=== PATIENT | male | born 1995 ===

== ENCOUNTER 2021-04-05 15:50 | Emergency (ER) | payer OTHER ==
--- NOTE | 2021-04-05 16:28 | EDM.PDOC ---
ED HPI GENERAL MEDICAL PROBLEM - General Chief Complaint: Abdominal Pain Stated Complaint: L SIDE ABD PAIN Time Seen by Provider: 04/05/21 16:27 Source of Information: Reports: Patient, RN Notes Reviewed - History of Present Illness INITIAL COMMENTS - FREE TEXT/NARRATIVE: 25 yr old male comes in with L flank and LLQ pain. He had onset of mild discomfort yesterday, became very severe this afternoon about 2 hrs ago. No voiding sx. No nausea, vomiting, fever or chills. Has chronic diarrhea associated with metformin usage. Left Lower Abdomen Pain Score (Numeric/FACES): 10 - Related Data Allergies Allergy/AdvReac Type Severity Reaction Status Date / Time No Known Allergies Allergy Verified 04/05/21 16:05 Home Meds: Home Meds Acetaminophen/oxyCODONE [Percocet 325-5 MG] 1 each PO Q6HR PRN #20 tab 04/05/21 [Rx] Dulaglutide [Trulicity] 1 injection SQ WEEKLY 04/05/21 [History] Losartan [Cozaar] 25 mg PO DAILY 04/05/21 [History] Tamsulosin HCl [Flomax] 0.4 mg PO DAILY #10 cap.er.24h 04/05/21 [Rx] metFORMIN HCl [Metformin HCl] 1,000 mg PO BID 04/05/21 [History] Past Medical History HEENT History: Reports: Impaired Vision Cardiovascular History: Reports: High Cholesterol Psychiatric History: Reports: Anxiety Endocrine/Metabolic History: Reports: Diabetes, Type II, Obesity/BMI 30+ Social & Family History - Tobacco Use Tobacco Use Status *Q: Never Tobacco User - Caffeine Use Caffeine Use: Reports: Soda - Recreational Drug Use Recreational Drug Use: No ED ROS GENERAL - Review of Systems Review Of Systems: See Below Constitutional: Denies: Fever, Chills, Diaphoresis HEENT: Reports: No Symptoms Respiratory: Denies: Shortness of Breath Cardiovascular: Denies: Chest Pain GI/Abdominal: Reports: Abdominal Pain, Diarrhea. Denies: Nausea, Vomiting : Reports: No Symptoms Musculoskeletal: Reports: Back Pain (, gone) Skin: Reports: No Symptoms Neurological: Reports: No Symptoms ED EXAM, GI/ABD - Physical Exam Exam: See Below General Appearance: Alert, Mild Distress Throat/Mouth: Normal Inspection Head: Atraumatic Neck: Supple Respiratory/Chest: No Respiratory Distress, Lungs Clear, Normal Breath Sounds Cardiovascular: Regular Rate, Rhythm GI/Abdominal Exam: Soft, Tender (very mild tenderness l lower abd, R abd nontender). No: Guarding, Rebound Back Exam: CVA Tenderness (L) (mild) Extremities: Normal Inspection Neurological: Alert, Oriented, No Motor/Sensory Deficits Skin Exam: Warm, Dry, Normal Color Course - Vital Signs Last Recorded V/S: Last Vital Signs Temp 96.2 F L 04/05/21 16:02 Pulse 80 04/05/21 16:02 Resp 16 04/05/21 16:02 BP 161/103 H 04/05/21 16:02 Pulse Ox 97 04/05/21 16:02 - Orders/Labs/Meds Orders: Active Orders 24 hr Category Date Time Status Peripheral IV Insertion Adult [OM.PC] Stat Oth 04/05/21 16:41 Ordered Labs: Laboratory Tests 04/05/21 04/05/21 04/05/21 Range/Units 16:15 16:15 16:48 WBC 9.85 H (4.23-9.07) K/mm3 RBC 5.44 (4.63-6.08) M/mm3 Hgb 16.3 (13.7-17.5) gm/dl Hct 46.1 (40.1-51.0) % MCV 84.7 (79.0-92.2) fl MCH 30.0 (25.7-32.2) pg MCHC 35.4 (32.2-35.5) g/dl RDW Std Deviation 37.9 (35.1-43.9) fL Plt Count 318 (163-337) K/mm3 MPV 9.7 (9.4-12.3) fl Neut % (Auto) 55.1 (34.0-67.9) % Lymph % (Auto) 35.6 (21.8-53.1) % [place] % (Auto) 6.3 (5.3-12.2) % Eos % (Auto) 2.7 (0.8-7.0) Baso % (Auto) 0.3 (0.1-1.2) % Neut # (Auto) 5.42 H (1.78-5.38) K/mm3 Lymph # (Auto) 3.51 (1.32-3.57) K/mm3 [place] # (Auto) 0.62 (0.30-0.82) K/mm3 Eos # (Auto) 0.27 (0.04-0.54) K/mm3 Baso # (Auto) 0.03 (0.01-0.08) K/mm3 Sodium 141 (136-145) mEq/L Potassium 4.1 (3.5-5.1) mEq/L Chloride 104 (98-107) mEq/L Carbon Dioxide 28 (21-32) mEq/L Anion Gap 13.1 (5-15) BUN 12 (7-18) mg/dL Creatinine 1.0 (0.7-1.3) mg/dL Est Cr Clr Drug Dosing 110.96 mL/min Estimated GFR (MDRD) > 60 (>60) mL/min BUN/Creatinine Ratio 12.0 L (14-18) Glucose 147 H (70-99) mg/dL Calcium 9.1 (8.5-10.1) mg/dL Total Bilirubin 0.3 (0.2-1.0) mg/dL AST 50 H (15-37) U/L ALT 155 H (16-63) U/L Alkaline Phosphatase 54 (46-116) U/L C-Reactive Protein <0.2 (<1.0) mg/dL Total Protein 8.0 (6.4-8.2) g/dl Albumin 4.2 (3.4-5.0) g/dl Globulin 3.8 gm/dL Albumin/Globulin Ratio 1.1 (1-2) Urine Color Yellow (Yellow) Urine Appearance Cloudy H (Clear) Urine pH 6.0 (5.0-8.0) Ur Specific [place] > or = 1.030 (1.005-1.030) Urine Protein 1+ H (Negative) Urine Glucose (UA) Negative (Negative) Urine Ketones Trace H (Negative) Urine Occult Blood 3+ H (Negative) Urine Nitrite Negative (Negative) Urine Bilirubin 1+ H (Negative) Urine Urobilinogen 0.2 (0.2-1.0) Ur Leukocyte Esterase Negative (Negative) Urine RBC >100 H (0-5) /hpf Urine WBC 0-5 (0-5) /hpf Ur Squamous Epith Cells 0-5 (0-5) /hpf Urine Bacteria Few (FEW) /hpf Urine Mucus Few (FEW) /hpf Meds: Medications Discontinued Medications Generic Name Dose Route Start Last Admin Trade Name Freq PRN Reason Stop Dose Admin Sodium Chloride 1,000 mls @ 999 mls/hr 04/05/21 16:45 04/05/21 16:48 Normal Saline IV 999 mls/hr ONETIME WENDIE Administration Ketorolac Tromethamine 30 mg 04/05/21 16:45 04/05/21 16:48 Ketorolac 30 Mg/Ml Sdv IVPUSH 30 mg ONETIME WENDIE Administration Sodium Chloride 10 ml 04/05/21 16:41 04/05/21 16:48 Sodium Chloride 0.9% 10 Ml Syringe FLUSH 10 ml ASDIRECTED PRN Administration Keep Vein Open - Re-Assessments/Exams Free Text/Narrative Re-Assessment/Exam: 04/05/21 19:54 Ua showed 3 plus hematuria, noted to be quite dark brown. Flat and upright abd showed a calcification suspicious for stone. Renal CT shows a 5.4 stone proximal L ureter with mild hydronephrosis. See Radiologist report for details. Pt is driving so no opiods given. Did give torodol 30 mg IV with fairly good relief of discomfort. Discharge instr. as documented. Departure - Departure Time of Disposition: 19:09 Disposition: Home, Self-Care 01 Condition: Fair Clinical Impression: Kidney stone on left side, Renal colic on left side - Discharge Information Prescriptions: Tamsulosin HCl [Flomax] 0.4 mg PO DAILY #10 cap.er.24h Acetaminophen/oxyCODONE [Percocet 325-5 MG] 1 each PO Q6HR PRN #20 tab PRN Reason: Pain Instructions: Kidney Stones Referrals: Rita Hines MD [Primary Care Provider] - Forms: ED Department Discharge Additional Instructions: Drink plenty of water to maintain hydration. Strain all urine to watch for stone. Call clinic tomorrow morning to get appointment to see Dr Hines in the next 2 to 3 days. If unable to see Dr Hines get appt. to see Dr Diaz or one of the other clinic providers. Flomax 0.4 mg daily, first dose tonight. Tylenol q 6 hr for mild to moderate discomfort, or percocet 1/2 to 1 full tablet q 6 hr for more severe pain. Prescriptions have been sent to [facility] located at the [facility]. Return to ED as needed. Sepsis Event Note (ED) - Evaluation Sepsis Screening Result: No Definite Risk - Focused Exam Vital Signs: Vital Signs Temp Pulse Resp BP Pulse Ox 04/05/21 16:02 96.2 F L 80 16 161/103 H 97 - My Orders Last 24 Hours: My Active Orders 04/05/21 16:41 Peripheral IV Insertion Adult [OM.PC] Stat - Assessment/Plan Last 24 Hours: My Active Orders 04/05/21 16:41 Peripheral IV Insertion Adult [OM.PC] Stat
[2021-04-05] MEDS ORDERED: Sodium Chloride 0.9% 10 ML Syringe FLUSH PRN (16:41)
[2021-04-05] MEDS ORDERED: Sodium Chloride 0.9% 1,000 ML IV SCH (16:45)
[2021-04-05] MEDS ORDERED: Ketorolac 30 MG/ML SDV IVPUSH SCH (16:45)
--- NOTE | 2021-04-05 17:29 | CR ---
Abdomen: Supine and upright views of the abdomen were obtained. Comparison: No prior abdominal imaging is available. Bowel gas pattern appears normal. There appears to be several nonobstructing calculi within the right kidney. Possible nonobstructing calculus is questioned along the left side of the psoas margin and difficult to exclude ureteral stone if patient has any corresponding symptoms. No acute osseous finding is seen. No additional abnormality is appreciated. No free air is seen. Impression: 1. Nonobstructing renal calculi within the right kidney. 2. Questionable calcification on the left side and difficult to exclude ureteral stone if patient has correlating symptoms. 3. No additional abnormality is seen. Diagnostic code #3
--- NOTE | 2021-04-05 18:39 | CT ---
CT abdomen and pelvis Technique: Multiple axial sections were obtained from above the kidneys inferiorly to the pubic symphysis. Intravenous and oral contrast not utilized. Reconstructed coronal and sagittal images were obtained. Study performed as a ureteral stone protocol. Comparison: Prior abdominal x-ray performed earlier the same day (4:50 PM). Findings: At least 3 nonobstructing calculi are seen within the right kidney. Largest calculus measures 4.4 mm. Left kidney shows no abnormal calculi. Left renal pelvis and proximal left ureter are mildly dilated. These findings are caused by an obstructing calculus within the proximal left ureter measuring 5.4 mm. Other portions of the ureters showed no additional calcifications. Visualized lung bases showed nothing acute. Liver shows diffuse fatty infiltration. Spleen size is normal. Adrenal glands show no nodule. Pancreas is within normal limits. Gallbladder contains no calcified gallstones. Abdominal aorta shows no aneurysm. Appendix is seen which is normal. No retroperitoneal adenopathy or mesenteric abnormalities are seen. No pelvic mass or adenopathy is seen. No free fluid or inflammatory change is seen. Bone window settings were reviewed. No acute osseous abnormality is appreciated. Impression: 1. At least 3 nonobstructing calculi within the right kidney. 2. 5.4 mm obstructing stone within the proximal left ureter causing mild hydronephrosis. 3. Fatty infiltration within the liver. 4. No other abnormality is appreciated. Diagnostic code #3
== END 2021-04-05 19:25 | disposition home or self-care (01) ==
LOC: JD.ED 15:50
DX: N13.2 Hydronephrosis with renal and ureteral calculous obstruction (principal); E11.9 Type 2 diabetes mellitus without complications; E66.9 Obesity, unspecified; Z79.84 Long term (current) use of oral hypoglycemic drugs; Z79.899 Other long term (current) drug therapy; Z68.33 Body mass index [BMI] 33.0-33.9, adult
CPT/HCPCS: 36415; 74019; 74176; 80053; 81001; 85025; 86140; 96374; 99284; J1885; J7030